=== PATIENT | female | born 1985 | race Caucasian/White ===

== ENCOUNTER 2016-06-16 14:23 | Emergency (ER) | payer MEDICAID ==
[~2016-06-16] VITALS: Ht 142.2 cm; Wt 50.0 kg
[2016-06-16 14:27] VITALS: Ht 142.2 cm; Wt 50.0 kg
--- NOTE | 2016-06-16 16:09 | RADRPT ---
PROCEDURE: Obstetrical ultrasound . CLINICAL INDICATION: pelvic pain , demise TECHNIQUE: Multiple sonographic images of the pelvis were obtained utilizing a transabdominal tech nique. The images were reviewed on a PACS workstation. COMPARISON: None. FINDINGS: There is a single intrauterine present with the crown-rump length measuring 4.0 cm which c orresponds to a calculated gestational age of 11 weeks and 0 days. No heart tones are identifi ed. The ovaries are not visualized.. No significant free fluid is present within the pelvis. No abnormal adnexal masses are present. RPTAT: AA IMPRESSION: Single intrauterine at 11 weeks and 0 days. No heart tones noted, consistent with demise. .Anoop Angel MD, Date Time Electronically viewed and signed by .Anoop Angel MD, on 06/16/2016 16:08 .S/
--- NOTE | 2016-06-16 17:12 | ERD ---
ER Documentation Chief Complaint Date/Time DATE: 06/16/16 TIME: 17:11 Chief Complaint 11WEEKS SENT FROM CLINIC FOR NO HEART RATE HPI This is a 30-year-old female who is 11 weeks and sent by her platform man because in the clinic they are unable to identify any heart tones. The patient is not having any cramps no vaginal bleeding no abdominal pain vomiting diarrhea no back pain or fever Ultrasound was done and the platform man office but they saw no heart tones but they did see a 11 week fetus. The platform man sent them here for confirmation ROS All systems reviewed and are negative except as per history of present illness. Allergies Allergies: Coded Allergies: No Known Allergy (Unverified , 06/16/16) PMhx/Soc History of Surgery: Yes (C SECTION ) Anesthesia Reaction: No Hx Neurological Disorder: No Hx Respiratory Disorders: No Hx Cardiac Disorders: No Hx Psychiatric Problems: No Hx Miscellaneous Medical Probl: No Hx Alcohol Use: No Hx Substance Use: No Hx Tobacco Use: No Smoking Status: Never smoker FmHx Family History: No coronary disease Physical Exam Vitals Vital Signs Date Time Temp Pulse Resp B/P Pulse Ox O2 Delivery O2 Flow Rate FiO2 06/16/16 14:27 99.8 105 20 117/67 98 Physical Exam Const: Well-developed, well-nourished Head: Atraumatic, normocephalic Eyes: Normal Conjunctiva, PERRLA, EOMI, normal sclera, no nystagmus ENT: Normal External Ears, Nose and Mouth, moist mucus membranes. Neck: Full range of motion. No meningismus, no lymphadenopathy. Resp: Clear to auscultation bilaterally, no wheezing, rhonchi, rales Cardio: Regular rate and rhythm, no murmurs, S1 S2 present Abd: Soft, non tender x 4, non distended. Normal bowel sounds, no guarding or rebound, no pulsitile abdominal masses or bruits Skin: No petechiae or rashes, no ecchymosis , no maculopapular rash Back: No midline or flank tenderness Ext: No cyanosis, or edema, FROM x 4, normal inspection, neurovascularly intact x 4 Neur: Awake and alert, STR 5/5 x 4, sensation intact x 4, no focal findings, cerebellum intact Psych: Normal Mood and Affect Results 24 hrs Laboratory Tests Test 06/16/16 15:45 Beta HCG, Quantitative 21038.0mIU/ml Procedures/MDM PROCEDURE: Obstetrical ultrasound . CLINICAL INDICATION: pelvic pain , demise TECHNIQUE: Multiple sonographic images of the pelvis were obtained utilizing a transabdominal technique. The images were reviewed on a PACS workstation. COMPARISON: None. FINDINGS: There is a single intrauterine present with the crown-rump length measuring 4.0 cm which corresponds to a calculated gestational age of 11 weeks and 0 days. No heart tones are identified. The ovaries are not visualized.. No significant free fluid is present within the pelvis. No abnormal adnexal masses are present. RPTAT: AA IMPRESSION: Single intrauterine at 11 weeks and 0 days. No heart tones noted, consistent with demise. .Anoop Angel MD, MD Date Time Electronically viewed and signed by .Anoop Angel MD, on 06/16/2016 16: 08 .S/ CC: YVONNE BROWN DO Patient was told of the demise and will refer back to her platform man to arrange for D&C Departure Diagnosis: Primary Impression: Missed Additional Impression: demise Condition: Stable Patient Instructions: Missed Miscarriage YVONNE BROWN DO June 16, 2016 17:12
== END 2016-06-16 17:20 | disposition home or self-care (01) ==
LOC: FTE 14:23
DX: O02.1 Missed abortion (principal); R10.2 Pelvic and perineal pain
CPT/HCPCS: 76801; 84702; Z7502

== ENCOUNTER 2018-02-07 16:56 | Outpatient (CLI) | END 2018-02-07 20:20 | disposition home or self-care (01) ==

== ENCOUNTER 2018-03-01 20:38 | Inpatient (IN) | payer MEDICAID ==
[~2018-03-01] VITALS: Ht 147.3 cm; Wt 57.2 kg
[~2018-03-01 20:38] MED LIST: PREN-93 PO
[2018-03-01 20:48] VITALS: BP 96/59; PULSE 85; RESP 18
[2018-03-01 21:02] VITALS: Ht 147.3 cm; Wt 57.2 kg
[2018-03-01] MEDS ORDERED: LACTATED RINGER'S 1,000 ML IV SCH (23:31)
[2018-03-02] MEDS ORDERED: CEFAZOLIN 2 GM/50 ML (PMX) 50 ML IVPB SCH
[2018-03-02] MEDS ORDERED: morphine SULFATE/PF (10 MG/10 ML) INJ ONE (00:02)
--- NOTE | 2018-03-02 00:03 | PREAC ---
Date/Time of Note Date/Time of Note DATE: 03/02/18 TIME: 00:03 Anesthesia Eval and Record Evaluation Time Pre-Procedure Interview DATE: 03/02/18 TIME: 00:03 Age 32 Sex female NPO: 8 hrs Preoperative diagnosis previous cs in labor with bulging bag Planned procedure repeat cs Past Medical History Past Medical History: None Surgery & Anesthesia Issues No known issue Meds Anticoagulation: No Beta Tru within 24 hr: No Reason Beta Tru not given: Pt. not on B-Tru Reported Medications Vit No.124/Iron/FA ( Vitamin Tablet) 1 Each Tablet, 1 EACH PO DAILY, TAB 02/07/18 Current Medications Lactated Ringer's 1,000 ml @ 125 mls/hr Q8H IV ; Start 03/01/18 at 23:31 Cefazolin Sodium/ Dextrose 50 ml @ 100 mls/hr ONCE IVPB ; Start 03/02/18 at 00:00 Oxytocin/Lactated Ringer's 500 ml @ 0 mls/hr ONCE PRN IV VAGINAL BLEEDING; Start 03/02/18 at 00:00 Methylergonovine Maleate (Methergine) 0.2 mg ONCE PRN IM VAGINAL BLEEDING; Start 03/02/18 at 00:00 Carboprost Tromethamine (Hemabate) 250 mcg ONCE PRN IM VAGINAL BLEEDING; Start 03/02/18 at 00:00 Misoprostol (Cytotec) 1,000 mcg ONCE PRN LA VAGINAL BLEEDING; Start 03/02/18 at 00:00 Meds reviewed: Yes Allergies Coded Allergies: No Known Allergy (Unverified , 03/01/18) Allergies Reviewed: Yes Labs/Studies Labs Reviewed: Reviewed by anesthesiologist Result Diagram: 03/01/18 2320 Laboratory Tests 03/01/18 23:20 test: Positive Pre-procedure Exam Last vitals Vital Signs Date Temp Pulse Resp B/P (MAP) Pulse Ox O2 O2 Flow FiO2 Time Delivery Rate 03/01/18 98.2 85 18 96/59 (71) Room Air 20:48 Airway: Adequate mouth opening, Adequate thyromental dist Mallampati: Mallampati II Teeth: Normal Lung: Normal Heart: Normal ASA Physical Status ASA physical status: 2 Emergency: None Planned Anesthetic Neuraxial: Epidural Planned Pain Management Sub-arachniod narcotics Pre-operative Attestations Prior to commencing anesthesia and surgery, the patient was re-evaluated, there was verification of: *The patient's identity *The results of appropriate recent lab work and preoperative vital signs *The above evaluation not changing prior to induction *Anesthetic plan, risk benefits, alternative and complications discussed with patient/family; questions answered; patient/family understands, accepts and wishes to proceed. APRIL LAZAR Mar 02, 2018 00:03
[2018-03-02] MEDS ORDERED: PHENYLephrine (100 MCG/ML) 5ML SYG ONE ×3 (00:12→00:41)
[2018-03-02] MEDS ORDERED: FENTAnyl 50 MCG/ML VIAL ONE (00:25)
[2018-03-02] MEDS ORDERED: ONDANSETRON 4 MG INJ IV PRN ×3 (00:30→04:30)
[2018-03-02] MEDS ORDERED: HYDROmorphONE 1 MG/5 ML IV SYRINGE IV PRN ×3 (00:30)
[2018-03-02] MEDS ORDERED: KETOROLAC 30 MG INJ IV PRN (00:30)
[2018-03-02] MEDS ORDERED: NALOXONE (0.4 MG/ML) INJ IV PRN (00:30)
[2018-03-02] MEDS ORDERED: FENTAnyl 50 MCG/ML VIAL IV PRN ×3 (00:30)
[2018-03-02] MEDS ORDERED: METOCLOPRAMIDE 10 MG INJ IV PRN (00:30)
[2018-03-02] MEDS ORDERED: HYDROmorphONE 0.5 MG/0.5 ML SYG IV PRN ×2 (00:30)
[2018-03-02] MEDS ORDERED: ALBUTEROL 0.083% (NEB) 2.5 MG/3 ML AMP HHN PRN (00:30)
[2018-03-02] MEDS ORDERED: DIPHENHYDRAMINE 50 MG INJ IV PRN ×3 (00:30→04:30)
[2018-03-02] MEDS ORDERED: PHENYLephrine 10 MG INJ ONE ×2 (00:40→01:20)
--- NOTE | 2018-03-02 01:36 | PAC ---
Date/Time of Note Date/Time of Note DATE: 03/02/18 TIME: 01:36 Post-Anesthesia Notes Post-Anesthesia Note Last documented vital signs Vital Signs Date Temp Pulse Resp B/P (MAP) Pulse Ox O2 O2 Flow FiO2 Time Delivery Rate 03/01/18 98.2 85 18 96/59 (71) Room Air 20:48 Activity: WNL Respiratory function: WNL Cardiovascular function: WNL Mental status: Baseline Pain reasonably controlled: Yes Hydration appropriate: Yes Nausea/Vomiting absent: Yes APRIL LAZAR Mar 02, 2018 01:36
--- NOTE | 2018-03-02 01:57 | HP ---
Date/Time of Note Date/Time of Note DATE: 03/02/18 TIME: 01:44 OB - History Hx of Present Free Text/Dictation 32y,o A1 at 37w3d here after passing mucous plug with intact membrane. Initial exam revealed 2/70/-2 with membrane bulging EFM revealed 2-6min in mild intensity reexamined shows progress in cervical status decided to get ready for repeat c/s course was unevenful. Chief Complaint: uc's Estimated Due Date: Mar 19, 2018 : 3 Para: 1 Spontaneous : 1 Therapeutic : 0 Care: Limited Care Ultrasounds: Normal mid trimester US Obstetrical Complications: None Medical Complications: None Past Family/Social History * Past Medical, Surgical, Family and Obstetric Histories reviewed from chart. Blood Type: O+ Rubella: immune RPR/VDRL: Negative GBS Status: Unknown HBsAG: Negative OB Admission Exam Vital Signs Vital Signs Vital Signs Date Temp Pulse Resp B/P (MAP) Pulse Ox O2 O2 Flow FiO2 Time Delivery Rate 03/01/18 98.2 85 18 96/59 (71) Room Air 20:48 Physical Exam HEENT: WNL Heart: Rhythm Normal Lungs: Clear, Equal Abdomen: WNL Extremities: Normal Reflexes: Normal Cervical Dilatation: 2cm Effacement: 75% Station: -2 Membranes: Intact Amniotic Fluid: Unevaluable Heart Rate: 130's Accelerations: Accelerations Present Decelerations: No Decelerations Varibility: Moderate Contractions on Admission: < 5 Minutes Apart Intensity: Mild Last 72 hours Lab Results CBC & BMP 03/01/18 23:20 OB Assessment/Plan Reason for admission: active labor Other Assessment: [id number] Plan: Section CELIO FRENCH MD Mar 02, 2018 01:56
--- NOTE | 2018-03-02 02:06 | OPPN ---
Date/Time of Note Date/Time of Note DATE: 03/02/18 TIME: 02:04 Operative Report Planned Procedure Procedure date Mar 02, 2018 Procedure(s) RLTC/S Performed by see signature line Vp Publisher Development: RIZWANA TOLBERT MD 2nd Vp Publisher Development none Anesthesiologist: APRIL LAZAR Pre-procedure diagnosis IUP 37w3d with previous c/s in labor [id number] Anesthesia Type: [id number] spinal Post-Procedure Post-procedure diagnosis delivered normal infant Findings Live Baby [], Apgars 8[] and 9[], weight [], position [lot], [vx] presentation no[]cord. Estimated Blood Loss: 400 - 500 mls Specimen(s) none Grafts/Implant(s) none Complication(s) none CELIO FRENCH MD Mar 02, 2018 02:06
[2018-03-02] MEDS ORDERED: OXYTOCIN 30 UNITS/LR 500 ML IV SCH (03:00)
[2018-03-02 04:05] VITALS: BP 87/56; PULSE 77; RESP 17
[2018-03-02] MEDS ORDERED: LACTATED RINGER'S 1,000 ML IV SCH (04:13)
[2018-03-02] MEDS ORDERED: OXYTOCIN 30 UNITS/LR 500 ML IV PRN ×2 (04:30)
[2018-03-02] MEDS ORDERED: CARBOPROST 250 MCG INJ IM PRN ×2 (04:30)
[2018-03-02] MEDS ORDERED: MISOPROSTOL 200 MCG TAB PR PRN ×2 (04:30)
[2018-03-02] MEDS ORDERED: METHYLERGONOVINE 0.2 MG INJ IM PRN ×2 (04:30)
[2018-03-02] MEDS ORDERED: ZOLPIDEM 5 MG TAB PO PRN (04:30)
[2018-03-02] MEDS ORDERED: OXYTOCIN 30 UNITS/LR 500 ML BAG IV ONE (07:00)
[2018-03-02 08:30] VITALS: BP 95/51; PULSE 97; RESP 18
[2018-03-02] MEDS: SENNA/DOCUSATE NA (8.6MG/50MG) TAB PO SCH ×2 (09:00→21:06)
[2018-03-02] MEDS: LANOLIN HPA 1 PKT TOP PRN (11:56)
[2018-03-02] MEDS: KETOROLAC 30 MG INJ IV PRN ×2 (11:57→19:52)
--- NOTE | 2018-03-02 14:23 | OPR ---
DATE OF OPERATION: 03/02/2018 PREOPERATIVE DIAGNOSIS: 37 weeks, 3 days with a previous section, in labor. POSTOPERATIVE DIAGNOSIS: 37 weeks, 3 days with a previous section, in labor, deli sg normal . OPERATION PERFORMED: Repeat low transverse section. ANESTHESIA: Spinal. ANESTHESIOLOGIST: Jordan Joseph MD SURGEON: Mark Johnson MD DATA REDUCTION TECHNICIAN: Harman Street MD ESTIMATED BLOOD LOSS: Approximately 500 mL. PROCEDURE IN DETAILS: Under the proper induction of spinal anesthesia, the patient was placed in the frog position. Liz catheter was introduced into bladder under sterile condition. The patient was repositioned to supine. Abdominal wall was prepped and draped in the usual aseptic manner. A trans verse incision was made along the previous incisional scar. Scar tissue was excised. Incision was c arried down through the subcutaneous tissue to the anterior recti fascia which was incised transverse ly in length of the incision. Fascial flap was created by blunt and sharp dissection of tendinous at tachment upward and 2 rectus muscles were split in the midline. Abdominal cavity was entered. There were some on entering the peritoneal cavity and also noted the uterovesical reflection was pul led up to the anterior aspect of the uterus due to previous surgery. Incision was made above the ref lection and reached it layer by layer, reached the amniotic membrane, which was ruptured, revealed cl ear amniotic fluid and normal infant was born from a left occiput transverse position. Mouth and nos e were cleaned and cord was delayed clamped and cut and handed to the respiratory care personnel for further care. Cord blood was obtained. Placenta was removed manually and uterus was exteriorized. Cavity was completely explored for any tissue left which was completely empty, was confirmed and the incision was closed using #1 chromic catgut in continuous interlocking manner on the first layer, sec ond layer using 0 chromic catgut with the thin needle and thus imbricating the first layer of closure . On middle portion, there was a little bleeding which was controlled separately with a simple sutur e. Sponge count taken after the abdominal cavity was irrigated, which was correct and the uterus was relocated in the abdominal cavity and the cavity was irrigated thoroughly and uterine incision was c hecked which was intact. On the way out, there was omental adhesion noted on the parietal peritoneum which was severe and the pedicle was ligated with 0 chromic catgut. After the second count of that which was correct and the parietal peritoneum was closed using 0 chromic catgut in continuous manner, muscle was closed with 0 chromic catgut in continuous manner. Fascia was closed with a #1 Vicryl in continuous manner in 2 segments. While we were closing the fascia, there was some oozing noted belo w the fascia which was controlled with inserting a piece of Surgicel. Subcutaneous tissue irrigated. This layer was approximated with a 2-0 plain in continuous manner after the adequate hemostasis was secured and skin was closed with 3-0 Monocryl in subcuticular manner. Steri-Strips applied. A pres sure dressing applied. Estimated blood loss approximately was 500 mL. The urine output approximatel y was 200 mL. The patient was sent to recovery room in stable condition. Dictated By: MARK RUBIO/GILMER Conf#: [id number] DID#: [id number] CC: TIGIST JORGE MD;*End*
[2018-03-02 16:00] VITALS: BP 106/70; PULSE 103; RESP 18
[2018-03-02 20:00] VITALS: BP 104/54; PULSE 79; RESP 18
[2018-03-02] MEDS ORDERED: IBUPROFEN 800 MG TAB NGT SCH (22:00)
[2018-03-02] MEDS: HYDROCODONE/APAP (5/325) TAB PO SCH (22:00)
[2018-03-03] VITALS: BP 98/68; PULSE 90; RESP 18
[2018-03-03] MEDS ORDERED: OXYCODONE/ACETAMINOPHEN (5/325) TAB PO PRN ×2 (00:30)
[2018-03-03] MEDS ORDERED: DIPHENHYDRAMINE 50 MG INJ IV PRN (00:30)
[2018-03-03] MEDS: HYDROCODONE/APAP (5/325) TAB PO PRN (01:08)
--- NOTE | 2018-03-03 01:26 | PN ---
Date/Time of Note Date/Time of Note DATE: 03/03/18 TIME: 01:23 OB Subjective Subjective Subjective Late entry note. Patient seen on 118 20:30 POD#0 Patient is doing well. She denies nausea, vomiting, shortness of breath, chest pain, headache. She has been ambulating without difficulty, tolerating regular diet. Pain is well controlled on current medications OB Objective Objective Objective General: AAO X 3, comfortable, NAD, appropriate mood and affect. Heart: RRR +S1, +S2, no murmurs. Lungs: Clear to auscultation (B/L), no rales, rhonchi or wheezing. ABD: +BS. Soft, non-tender. Uterus 2 cm below umbilicus Incision: Dry dressing Flank: No CVA tenderness (B/L) LE: Mild edema. No clubbing, cyanosis, thigh or calf tenderness (B/L). Homans 'sign is negative OB Assessment/Plan Other plan: 32-year-old s/p repeat delivery at 37 weeks and 3 days. POD#1 - AF, VSS - Baby is doing well, at bed side. She is bonding well - Contraception methods with R/B/A/FR discussed - Continue care - TIGIST JORGE Mar 03, 2018 01:26
[2018-03-03 03:52] VITALS: BP 104/55; PULSE 97; RESP 18
[2018-03-03] MEDS: IBUPROFEN 800 MG TAB PO SCH ×3 (05:36→22:26)
[2018-03-03] MEDS ORDERED: IBUPROFEN 600 MG TAB PO SCH (06:00)
[2018-03-03] MEDS: HYDROCODONE/APAP (5/325) TAB PO SCH ×3 (06:16→22:26)
--- NOTE | 2018-03-03 07:20 | PN ---
Date/Time of Note Date/Time of Note DATE: 03/03/18 TIME: 07:19 OB Subjective Subjective Subjective POD#1 Patient is doing well. She denies nausea, vomiting, shortness of breath, chest pain, headache. She has been ambulating without difficulty, tolerating regular diet. Pain is well controlled on current medications OB Objective Objective Objective VS - Last 72 Hours, by Label Date Temp Pulse Resp B/P (MAP) Pulse Ox O2 O2 Flow FiO2 Time Delivery Rate 03/03/18 98.0 97 18 104/55 Room Air 03:52 (71) 03/03/18 98.6 90 18 98/68 (78) Room Air 00:00 03/02/18 99.0 79 18 104/54 Room Air 20:00 (71) 03/02/18 99.0 103 18 106/70 98 Room Air 16:00 (82) 03/02/18 99.7 97 18 95/51 (66) Room Air 08:30 03/02/18 99.1 77 17 87/56 (66) 97 Room Air 04:05 03/01/18 98.2 85 18 96/59 (71) Room Air 20:48 General: AAO X 3, comfortable, NAD, appropriate mood and affect. ABD: +BS. Soft, non-tender. Uterus 2 cm below umbilicus Incision: Clear, dry, intact. No erythema or drainage Flank: No CVA tenderness (B/L) LE: Mild edema. No clubbing, cyanosis, thigh or calf tenderness (B/L). Homans 'sign is negative OB Assessment/Plan Other plan: 32-year-old s/p repeat delivery at 37 weeks and 3 days. POD#1 - AF, VSS - Baby is doing well, at bed side. She is bonding well - Contraception methods with R/B/A/FR discussed - Continue care - TIGIST JORGE Mar 03, 2018 07:20
[2018-03-03 08:07] VITALS: BP 92/55; PULSE 68; RESP 18
[2018-03-03] MEDS: SENNA/DOCUSATE NA (8.6MG/50MG) TAB PO SCH ×2 (09:17→22:26)
[2018-03-03 15:04] VITALS: BP 97/59; PULSE 68; RESP 18
[2018-03-03 20:05] VITALS: BP 86/50; PULSE 88; RESP 18
[2018-03-04 04:00] VITALS: BP 99/63; PULSE 88; RESP 18
[2018-03-04] MEDS: HYDROCODONE/APAP (5/325) TAB PO SCH ×3 (06:37→21:44)
[2018-03-04] MEDS: IBUPROFEN 800 MG TAB PO SCH ×3 (06:37→21:43)
[2018-03-04 08:00] VITALS: BP 107/56; PULSE 82; RESP 18
[2018-03-04] MEDS: SENNA/DOCUSATE NA (8.6MG/50MG) TAB PO SCH ×2 (10:54→21:43)
[2018-03-04] MEDS: LANOLIN HPA 1 PKT TOP PRN (10:54)
--- NOTE | 2018-03-04 12:51 | QN ---
Documentation Comment POD#2 is stable afebrile tolerates Diet No VB +Flatus +voids Vs stable Gen NAD Abd soft NT ND Dressing to be removed Genitalia No blood at perineum --->Discharge plan tomorrow --->Ambulation WOO BOX M.D. Mar 04, 2018 12:51
[2018-03-04 15:50] VITALS: BP 105/55; PULSE 75; RESP 18
[2018-03-04] MEDS: HYDROCODONE/APAP (5/325) TAB PO PRN (19:31)
[2018-03-04 19:40] VITALS: BP 103/54; PULSE 82; RESP 19
[2018-03-05 03:55] VITALS: BP 95/58; PULSE 68; RESP 17
[2018-03-05] MEDS: IBUPROFEN 800 MG TAB PO SCH ×2 (05:42→13:56)
[2018-03-05] MEDS: HYDROCODONE/APAP (5/325) TAB PO SCH ×2 (05:42→17:34)
[2018-03-05 08:00] VITALS: BP 106/62; PULSE 76; RESP 18
[2018-03-05] MEDS ORDERED: DIPHTH/TET/ACEL PERTUSS (ADULT) 0.5 ML VIAL IM* ONE (09:00)
[2018-03-05] MEDS: SENNA/DOCUSATE NA (8.6MG/50MG) TAB PO SCH (09:11)
[2018-03-05 16:00] VITALS: BP 97/60; PULSE 83; RESP 18
--- NOTE | 2018-03-05 16:20 | QN ---
Documentation Comment POD#3 is stable afebrile tolerates Diet No VB +BM +voids Vs stable Gen NAD Abd soft NT ND Incison intact Genitalia No blood at perineum --->Discharge plan WOO BOX M.D. Mar 05, 2018 16:20
--- NOTE | 2018-03-11 18:48 | CONS ---
Consultation Date/Type/Reason Admit Date/Time Mar 01, 2018 at 23:05 Initial Consult Date 03/02/18 Type of Consult Anesthesiology Reason for Consultation Follow up Date/Time of Note DATE: 03/11/18 TIME: 18:48 24 HR Interval Summary Free Text/Dictation Pt seen and examined at bedside on 03/02/18 POD#1 s/p repeat c/s. Pt received spinal duramorph for post op pain control. No N/V/WORRELL/Numbness in extremities. APRIL LAZAR Mar 11, 2018 18:48
--- NOTE | 2018-04-01 09:54 | DS ---
Date/Time of Note Date/Time of Note DATE: 04/01/18 TIME: 09:50 Discharge Summary Admission/Discharge Info Admit Date/Time Mar 01, 2018 at 23:05 Discharge Date/Time Mar 05, 2018 at 19:05 Discharge Diagnosis Patient Condition: Good Hospital Course uneventful Home Meds No Active Prescriptions or Reported Meds Primary Care Provider Care Physician No Primary WOO BOX M.D. Apr 01, 2018 09:54
== END 2018-03-05 19:05 | disposition home or self-care (01) | DRG 788 ==
LOC: OBT 20:38 → L-D 20:39 → OBT 23:05 → L-D 23:05 → PP1 03-02 04:07
PROVIDERS: ADMIT Obstetrics & Gynecology; ATTEND Obstetrics & Gynecology
PROC: 10D00Z1 Extraction of Products of Conception, Low, Open Approach (ICD-10-PCS; principal; 2018-03-01)
DX: O34.211 Maternal care for low transverse scar from previous cesarean delivery (principal); Z3A.37 37 weeks gestation of pregnancy; Z37.0 Single live birth
CPT/HCPCS: 85025; 85610; 85730; 86592; 86850; 86900; 86901; 87340; 90686; 99464; G0463; J0690; J1170; J1200; J1885; J2274; J2370; J2590; J3010; J7120